=== PATIENT | female | born 1970 | race Caucasian/White ===

== ENCOUNTER → 2016-10-30 | Outpatient (CLI) | payer BC | END | disposition home or self-care (01) | LOC: CFH 13:55 | PROVIDERS: ATTEND Surgery | DX: S39.011A Strain of muscle, fascia and tendon of abdomen, initial encounter (principal); R59.9 Enlarged lymph nodes, unspecified; X58.XXXA Exposure to other specified factors, initial encounter; Y93.89 Activity, other specified; Y92.89 Other specified places as the place of occurrence of the external cause; Y99.8 Other external cause status | CPT/HCPCS: 76857 ==